=== PATIENT | male | born 1975 | race Caucasian/White ===

== ENCOUNTER → 2016-09-26 | Outpatient (CLI) | payer BC ==
[2016-09-26 09:36] LABS: HEMATOCRIT 43.1 % (42.0-52.0); HEMOGLOBIN 14.9 g/dL (14.0-18.0); MEAN CORPUSCULAR HEMOGLOBIN 30.8 PG (27-31); MEAN CORPUSCULAR HGB CONC 34.6 g/dL (33-37); RED BLOOD COUNT 4.84 10^6/uL (4.70-6.10)
[2016-09-26 09:37] LABS: BASOPHILS # (AUTO) 0.06 10*3/UL; BASOPHILS % (AUTO) 0.9 % (0-1); EOSINOPHILS # (AUTO) 0.07 10*3/UL; LYMPHOCYTES # (AUTO) 2.23 10*3/uL; MEAN PLATELET VOLUME 10.7 FL (7.4-12.2); MONOCYTES # (AUTO) 0.56 10*3/UL (0.3-0.8); MONOCYTES % (AUTO) 8.3 % (5-15); NEUTROPHILS # (AUTO) 3.77 10*3/UL; NEUTROPHILS % (AUTO) 56.1 % (50-80); PLATELET MORPHOLOGY COMMENT NORMAL MORPHOLOGY (NORM); RBC MORPHOLOGY COMMENT NORMAL MORPHOLOGY (NORM); WBC MORPHOLOGY COMMENT NORMAL MORPHOLOGY (NORM)
== END ==
LOC: LAB 09:08
PROVIDERS: ATTEND Nurse Practitioner Family
DX: R79.89 Other specified abnormal findings of blood chemistry (principal)
CPT/HCPCS: 36415; 82728; 83540; 83550; 85025

== ENCOUNTER → 2016-10-12 | Outpatient (CLI) | payer BC ==
--- NOTE | 2016-10-12 10:50 | DI ---
US ABDOMEN LIMITED,10/12/2016 8:57 AM: Clinical History: Elevated ferritin level. Previous Exam: None at this facility. Findings: Multiple transabdominal grayscale and color Doppler sonographic images are obtained through the abdom en, and demonstrate a normal-appearing kidney measuring 10.8 cm in length without hydronephrosis nor nephrolithiasis. The liver is unremarkable. There are multiple layering stones within the gallbladder. The pancreas is not well seen, but visualized portions are unremarkable. The aorta is also unremarkable. The gallbladder wall measures 2 mm. The common bile duct measures 3 mm. Impression: Cholelithiasis otherwise unremarkable.
== END ==
LOC: US 08:51
PROVIDERS: ATTEND Nurse Practitioner Family
DX: R79.89 Other specified abnormal findings of blood chemistry (principal); K80.20 Calculus of gallbladder without cholecystitis without obstruction
CPT/HCPCS: 76705